=== PATIENT | male | born 1985 | race Caucasian/White ===

== ENCOUNTER 2017-11-19 17:47 | Emergency (ER) | payer OTHER ==
[~2017-11-19] VITALS: Ht 185.4 cm; Wt 71.3 kg
[2017-11-19 18:23] VITALS: Ht 185.4 cm; Wt 71.3 kg
[2017-11-19 20:41] VITALS: BP 119/81
== END 2017-11-19 20:41 | disposition home or self-care (01) ==
LOC: ED 17:47
DX: J06.9 Acute upper respiratory infection, unspecified (principal); R11.0 Nausea; I12.9 Hypertensive chronic kidney disease with stage 1 through stage 4 chronic kidney disease, or unspecified chronic kidney disease
CPT/HCPCS: J2270

== ENCOUNTER 2018-10-08 11:18 | Inpatient (IN) | payer OTHER ==
[~2018-10-08] VITALS: Ht 177.8 cm; Wt 71.0 kg
[2018-10-08 11:24] VITALS: Ht 177.8 cm; Wt 71.0 kg
[2018-10-08 12:00] LABS: PLATELET COUNT 167 x10^3mcL (130-400); RED CELL DISTRIBUTION WIDTH 14.3 % (11.5-14.5)
[2018-10-08 12:07] LABS: BASOPHIL % 2.3 % (0-2)
[2018-10-08 12:42] LABS: CALCIUM 8.7 mg/dL (8.5-10.1); CARBON DIOXIDE 24.7 mmol/L (21-32); POTASSIUM SERUM 3.7 mmol/L (3.5-5.1)
[2018-10-08 12:55] LABS: ALBUMIN 3.1 g/dL (3.4-5.0); BILIRUBIN TOTAL 0.9 mg/dL (0.20-1.00); T4(THYROXINE) 7.9 ug/dL (4.7-13.3); TOTAL PROTEIN, SERUM 7.8 g/dL (6.4-8.2)
[2018-10-08 13:04] LABS: microscopic required? YES; urine erythrocyte 2+ (NEGATIVE)
[2018-10-08] MEDS ORDERED: PREDNISONE50 MG (15:03)
[2018-10-08] MEDS ORDERED: COZAAR100 MG (15:04)
[2018-10-08 15:52] LABS: PHOSPHOROUS 1.8 mg/dL (2.5-4.9)
[2018-10-08 16:07] VITALS: BP 128/83
[2018-10-08 16:11] LABS: AMPHETAMINE QUAL UR NONE DETECTED (See below)
[2018-10-08 17:52] VITALS: BP 128/83
[2018-10-08 19:30] VITALS: BP 110/69
[2018-10-09 04:21] VITALS: BP 104/70
[2018-10-09 06:41] LABS: BASOPHIL % 0.1 % (0-2); PLATELET COUNT 187 x10^3mcL (130-400); RED CELL DISTRIBUTION WIDTH 14.2 % (11.5-14.5)
[2018-10-09 07:22] LABS: CALCIUM 8.7 mg/dL (8.5-10.1); CARBON DIOXIDE 22.8 mmol/L (21-32); CREATININE SERUM 1.5 mg/dL (0.7-1.3); MAGNESIUM 2.3 mg/dL (1.8-2.4); PHOSPHOROUS 1.7 mg/dL (2.5-4.9); POTASSIUM SERUM 4.2 mmol/L (3.5-5.1)
[2018-10-09 09:37] VITALS: BP 112/63
[2018-10-09 16:57] VITALS: BP 126/69
[2018-10-09 19:34] VITALS: BP 116/66
[2018-10-10 04:19] VITALS: BP 109/64
[2018-10-10 06:28] LABS: CALCIUM 8.5 mg/dL (8.5-10.1); CARBON DIOXIDE 24.8 mmol/L (21-32); CREATININE SERUM 1.5 mg/dL (0.7-1.3); MAGNESIUM 2.1 mg/dL (1.8-2.4); PHOSPHOROUS 2.7 mg/dL (2.5-4.9); POTASSIUM SERUM 3.8 mmol/L (3.5-5.1)
[2018-10-10 08:30] LABS: BASOPHIL % 0.3 % (0-2); PLATELET COUNT 220 x10^3mcL (130-400); RED CELL DISTRIBUTION WIDTH 14.2 % (11.5-14.5)
[2018-10-10 09:36] VITALS: BP 110/62
[2018-10-10 17:35] VITALS: BP 115/72
[2018-10-10 20:18] VITALS: BP 123/71
[2018-10-11 05:36] VITALS: BP 99/63
[2018-10-11 06:20] LABS: BASOPHIL % 0.2 % (0-2); PLATELET COUNT 235 x10^3mcL (130-400); RED CELL DISTRIBUTION WIDTH 14.2 % (11.5-14.5)
[2018-10-11 06:51] LABS: CALCIUM 8.4 mg/dL (8.5-10.1); CARBON DIOXIDE 23.7 mmol/L (21-32); CREATININE SERUM 1.5 mg/dL (0.7-1.3); POTASSIUM SERUM 4.1 mmol/L (3.5-5.1)
[2018-10-11 09:31] VITALS: BP 113/61
[2018-10-11 13:02] VITALS: BP 113/61
[2018-10-11 16:35] VITALS: BP 109/69
[2018-10-11 20:52] VITALS: BP 125/75
[2018-10-12 06:15] LABS: BASOPHIL % 0.1 % (0-2); PLATELET COUNT 261 x10^3mcL (130-400); RED CELL DISTRIBUTION WIDTH 14.5 % (11.5-14.5)
[2018-10-12 06:17] VITALS: BP 114/65
[2018-10-12 06:25] LABS: CALCIUM 8.5 mg/dL (8.5-10.1); CARBON DIOXIDE 23.7 mmol/L (21-32); CREATININE SERUM 1.7 mg/dL (0.7-1.3); POTASSIUM SERUM 3.9 mmol/L (3.5-5.1)
[2018-10-12 08:03] VITALS: BP 110/60
[2018-10-12] MEDS ORDERED: TAM75 PO (10:54)
[2018-10-12] MEDS ORDERED: CLINDAMYCIN HY150 M1 PO (11:07)
[2018-10-12] MEDS ORDERED: LEVAQUIN750 MG PO (11:08)
[2018-10-12 12:16] VITALS: BP 116/39
[2018-10-12 13:46] VITALS: BP 116/39
[2018-10-12 16:28] VITALS: BP 133/79
== END 2018-10-12 18:19 | disposition home or self-care (01) | DRG 871 ==
LOC: ED 11:18 → MU 15:00
PROVIDERS: Emergency Medicine; Internal Medicine; ADMIT Family Medicine
DX: A41.9 Sepsis, unspecified organism (principal); J18.1 Lobar pneumonia, unspecified organism; N17.0 Acute kidney failure with tubular necrosis; Z94.0 Kidney transplant status; E87.1 Hypo-osmolality and hyponatremia; E44.0 Moderate protein-calorie malnutrition; R80.9 Proteinuria, unspecified; E83.39 Other disorders of phosphorus metabolism; D89.9 Disorder involving the immune mechanism, unspecified; R73.03 Prediabetes; I10 Essential (primary) hypertension; E78.00 Pure hypercholesterolemia, unspecified; Z68.20 Body mass index [BMI] 20.0-20.9, adult
CPT/HCPCS: 36600; 82962; 83880; 87804; J1956; J2405; J2920; J2930; J3490; J7030; J7507; J7512; J7613; J7620; J7644; Q0092

== ENCOUNTER 2018-11-21 19:43 | Emergency (ER) | payer OTHER ==
[~2018-11-21] VITALS: Ht 185.4 cm; Wt 74.8 kg
[~2018-11-21 19:43] MED LIST: CLINDAMYCIN HY150 M1 PO; COZAAR100 MG; LEVAQUIN750 MG PO; PREDNISONE50 MG; TAM75 PO
[2018-11-21 20:22] VITALS: Ht 185.4 cm; Wt 74.8 kg
[2018-11-22 00:04] VITALS: BP 140/83
== END 2018-11-22 00:04 | disposition home or self-care (01) ==
LOC: ED 19:43
DX: M22.2X1 Patellofemoral disorders, right knee (principal); I10 Essential (primary) hypertension